=== PATIENT | male | born 2000 | race Caucasian/White ===

== ENCOUNTER → 2020-08-10 | Outpatient (CLI) | payer OTHER ==
[~2020-08-10] MED LIST: 0.9 % SODIUM CHLORIDE 10 ML DISP.SYRIN. ID ONE; GADOTERATE 5 MMOL/10ML VIAL. INT ART ONE; IOHEXOL 300 MG/ML 50 ML VIAL. INT ART ONE; LIDOCAINE 1% Multi-Dose 20 ML VIAL. ID ONE; OXYC-325 PO; PROM25TA10 PO
--- NOTE | 2020-08-10 18:25 | KCIC ---
Fluoroscopically guided injection of the right shoulder to facilitate a MR arthrogram 08/10/2020 Clinical history: Right shoulder pain. Technique: After the risks and benefits of the procedure were explained to the patient, written infor med consent was obtained. The anterior skin surface of the right shoulder was prepped and draped in s terile fashion. 1% lidocaine was used as local anesthetic. Under fluoroscopic guidance, a 22-gauge sp inal needle was advanced into the anterior aspect of the right glenohumeral joint. 18 cc of a solutio n containing 5 cc of Omnipaque 300, 5 cc of lidocaine, 10 cc of normal saline and 0.1 cc of Clariscan was injected into the right glenohumeral joint under fluoroscopic guidance. Following this the needl e was removed and hemostasis achieved at the puncture site. A sterile bandage was placed on the skin puncture site. The patient tolerated the procedure well and there were no immediate complications. Th e patient was taken to MRI for further imaging. The total fluoroscopic time for this study was 13 sec onds. 1 digital fluoroscopic captured radiograph of the right shoulder was obtained. Impression: Technically successful injection of the right shoulder joint under fluoroscopy as outline d above. Electronically signed by: Diego Stanford MD (08/10/2020 6:22 PM) [id number]
--- NOTE | 2020-08-11 13:14 | KCIC ---
EXAM: MRI RIGHT SHOULDER WITH CONTRAST INDICATION: Right shoulder pain COMPARISON: None TECHNIQUE: Multiplanar, multisequence imaging of the right shoulder after intra-articular injection o f contrast, performed separately. FINDINGS: ROTATOR CUFF: There is partial-thickness articular sided tear of the infraspinatus tendon at the foot print measuring approximately 0.9 x 1.2 cm, less than 50 percent of the tendon thickness. There are c ystic changes and osseous irregularity at the infraspinatus and posterior supraspinatus footprint. Th ere is contrast within a small cyst at the posterior supraspinatus footprint but no definite supraspi natus tendon tear. Mild supraspinatus and infraspinatus tendinopathy. Teres minor and subscapularis t endons are intact. LABRUM: There is a posterior superior labral tear. BICEPS TENDON: The biceps tendon is intact and located. ACROMIOCLAVICULAR JOINT: Within normal limits. Type I acromion without significant downsloping. GLENOHUMERAL JOINT: Articular cartilage is intact. There is osseous irregularity with cystic changes and marrow edema in the greater tuberosity, greatest at the posterior supraspinatus and infraspinatus footprint. No definite fracture. OTHER: Contrast distends the joint. No fluid or contrast in the subacromial-subdeltoid bursa. No intr a-articular body. IMPRESSION: 1. Partial-thickness articular sided tear of the infraspinatus tendon. Mild supraspinatus and infrasp inatus tendinopathy. 2. Posterior superior labral tear. 3. Marrow edema with osseous irregularity and cystic changes in the greater tuberosity, greatest at t he posterior supraspinatus and infraspinatus footprint. Electronically signed by: Sandi Levy MD (08/11/2020 1:12 PM) [id number]
== END | disposition home or self-care (01) ==
LOC: KCIC 14:52
PROVIDERS: ATTEND Orthopaedic Surgery
DX: S43.004A Unspecified dislocation of right shoulder joint, initial encounter (principal); M25.511 Pain in right shoulder; S43.431A Superior glenoid labrum lesion of right shoulder, initial encounter; Z79.899 Other long term (current) drug therapy; Z72.89 Other problems related to lifestyle; X58.XXXA Exposure to other specified factors, initial encounter; Y93.89 Activity, other specified; Y92.89 Other specified places as the place of occurrence of the external cause; Y99.8 Other external cause status
CPT/HCPCS: 23350; 73219; 77002; A9575; J3490; Q9967; 73040

== ENCOUNTER → 2020-08-19 | Outpatient (CLI) | payer OTHER ==
[~2020-08-19] MED LIST changes: -0.9 % SODIUM CHLORIDE 10 ML DISP.SYRIN. ID ONE; -GADOTERATE 5 MMOL/10ML VIAL. INT ART ONE; -IOHEXOL 300 MG/ML 50 ML VIAL. INT ART ONE; -LIDOCAINE 1% Multi-Dose 20 ML VIAL. ID ONE
== END ==
LOC: LAB 10:14
PROVIDERS: ATTEND Orthopaedic Surgery
DX: Z01.812 Encounter for preprocedural laboratory examination (principal); Z20.822 Contact with and (suspected) exposure to COVID-19; S43.431A Superior glenoid labrum lesion of right shoulder, initial encounter; M75.111 Incomplete rotator cuff tear or rupture of right shoulder, not specified as traumatic; X58.XXXA Exposure to other specified factors, initial encounter; Y93.89 Activity, other specified; Y92.89 Other specified places as the place of occurrence of the external cause; Y99.8 Other external cause status
CPT/HCPCS: U0003

== ENCOUNTER 2020-08-23 10:11 | Day surgery (SDC) | payer OTHER ==
[~2020-08-23] VITALS: Ht 172.7 cm; Wt 63.0 kg
[~2020-08-23 10:11] MED LIST changes: +BUPIVACAINE-EPI 0.25% 30 ML VIAL KIT. ONE; +EPINEPHrine VIAL 30 MG/30 ML VIAL ONE; +IV RINGERS,LACTATED 1000ML 1,000 ML IV SCH; -OXYC-325 PO; +PROCHLORPERAZINE 10 MG/2 ML VIAL. IVP PRN; -PROM25TA10 PO; +fentaNYL PF VIAL 100 MCG/2 ML VIAL IVP PRN
[2020-08-23] MEDS ORDERED: ONDANSETRON PF 4 MG/2 ML VIAL. ONE (11:36)
[2020-08-23] MEDS ORDERED: DEXAMETHASONE SOD PHOS 4 MG/ML VIAL ONE (11:36)
[2020-08-23] MEDS ORDERED: LIDOCAINE 2% PF 5 ML VIAL. ONE (11:36)
[2020-08-23] MEDS ORDERED: PROPOFOL 10 MG/ML (20ML) VIAL. IV ONE (11:36)
[2020-08-23] MEDS ORDERED: fentaNYL PF VIAL 250 MCG/5 ML VIAL ONE (11:37)
[2020-08-23] MEDS ORDERED: MIDAZOLAM HCL/PF 2 MG/2 ML VIAL. ONE (11:37)
[2020-08-23] MEDS ORDERED: ROCURONIUM 50 MG/5 ML VIAL. ONE (11:37)
[2020-08-23] MEDS ORDERED: GLYCOPYRROLATE 1 MG/5 ML VIAL. ONE (14:05)
[2020-08-23] MEDS ORDERED: NEOSTIGMINE METHYLSULFATE 5 MG/5 ML SYRINGE. ONE (14:05)
[2020-08-23] MEDS ORDERED: SEVOFLURANE > 120 MINUTES. IH ONE (14:13)
[2020-08-23] MEDS ORDERED: MORPHINE SULFATE 2 MG/ML VIAL. ONE (14:44)
[2020-08-23] MEDS: MORPHINE SULFATE 2 MG/ML VIAL. IVP PRN ×2 (14:45→14:57)
[2020-08-23] MEDS ORDERED: HYDROmorphone 2 MG/ML VIAL ONE (15:00)
--- NOTE | 2020-08-23 15:01 | PDOC4 ---
Operative Note Operative Note Date of Procedure: August 23, 2020 Pre-Op Diagnosis: Incomplete rotator cuff tear or rupture of right shoulder, not specified as traumatic M75.111 Tear of right glenoid labrum, initial encounter S43.431A Dislocation of right shoulder joint, initial encounter S43.004A Post-Op Diagnosis: Incomplete rotator cuff tear or rupture of right shoulder, not specified as traumatic M75.111 Tear of right glenoid labrum, initial encounter S43.431A Dislocation of right shoulder joint, initial encounter S43.004A Procedure: Right shoulder arthroscopic limited debridement of partial-thickness rotator cuff tear articular side of the infraspinatus, minimal tendon thickness involvement, much less than 50%. Arthroscopy, right shoulder, surgical; capsulorrhaphy with posterior labral suture anchor repair and anterior capsulorrhaphy with suture anchors CPT 66047 Surgeon: Chrissy Miller MD Instructor Warper: ALLA Lloyd Anesthesia: General EBL: 50 mL Specimens Obtained: none Complications: none Drains: none Findings: The glenohumeral joint showed anterior inferior instability, which is the predisposing factor for the posterior labral tear and undersurface infraspinatus partial-thickness rotator cuff tear, caused by internal impingement. The infraspinatus tear was amenable to debridement only. The posterior l labral tear was repaired with suture anchors. The anterior instability was repaired with labral repair and capsular plication. Indications for Procedure: This patient is a 20 -year-old with shoulder pain and sensation of instability. He tried some nonoperative treatment without success including posterior capsule stretching program. 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 Due to the anterior instability, the internal impingement has caused tears of the posterior labrum and the undersurface of the infraspinatus. We discussed options for treatment. He got minimal relief with nonoperative treatment. We discussed the option of surgery including likely anterior capsulorrhaphy and tightening which is to help prevent further internal impingement, as well as the posterior labral repair and possible rotator cuff repair. We discussed the potential risks of stiffness, infection, neurovascular injury, persistent loss of motion or pain, and the chance that he would not be able to return to competitive baseball. We discussed risks benefits and alternatives in detail and he desires to proceed. Written consent was obtained. Procedure in Detail: The patient was identified in the preoperative holding area. The correct right shoulder was marked by me. He was taken to the operating room where a general anesthetic was used. Preoperative antibiotics were given intravenously. A timeout procedure was performed. The patient was positioned laterally on a beanbag with the bony prominences well-padded. The arm suspended on an overhead traction tower with 15 pounds of traction weight. After prep of the shoulder with ChloraPrep, 20 mL of 0.25% bupivacaine with epinephrine was injected into the glenohumeral joint. The limb was then prepared circumferentially with ChloraPrep solution and sterile waterpr arcelia arthroscopy drapes were applied. Posterior, posterolateral, lateral, and anterior arthroscopy portals were used. The glenohumeral joint shows minor degenerative changes of the glenoid cartilage and limited debridement was performed. There is anterior inferior instability of the humeral head, and with traction weight, the shoulder is nearly dislocated anteriorly. There is no high-grade labral tear but there is some partial- thickness anterior labral tearing. There is a more distinct posterior labral tear which appears somewhat degenerative in nature and appears more chronic. The undersurface of the supraspinatus is normal. The undersurface of the infraspinatus had some minor partial-thickness tearing and limited debridement was performed with a shaver. Ultimately a marker suture was placed for further examination of this later in the case. I treated the anterior inferior instability first. I used the tissue liberator to free up the anterior labrum from the 3:00 to 5:00 positions. The motorized bur was used to decorticate the anterior glenoid bone for a bleeding bony tissue bed for eventual repair and capsulorrhaphy. I used Arthrex FiberTak suture anchors. 2 anterior anchors were placed, at approximately the 3:00 and 5:00 positions. The Arthrex cannula was used, and the state pilot drill hole was made with a dedicated drill bit. The first anchor was deployed at the 5 o'clock position, and then the Spectrum soft tissue repair set was used to shuttle a #0 PDS suture. The Spectrum hook was used to grasp the anterior band of the inferior glenohumeral ligament inferior to the placement of the anchor, drawing that capsular tissue up towards the anchor, and then taking a second bite with the hook, of the labrum itself at the location of the anchor. This helped to plicate the capsule and tighten the anterior instability. Once the PDS suture was deployed I used a dilator knot technique to shuttle one tail of the anchor suture under the labrum, through the capsular bite, and back out the anterior working cannula. My assistant to the president Ricardo then held the shoulder reduced while I tied the knots. I used a double sliding knot followed by reversed half hitches with reversed posts, tying all of the knots under direct arthroscopic vision for excellent knot security. The suture tails were trimmed, and a probe was used to confirm the stability of the repair of the first anchor. The first anchor part ially reduced the shoulder to a more normal concentric glenohumeral articulation. The second anchor was placed at the 3 o'clock position using the same technique, and again taking 2 bites, one of the inferior capsule and the other of the labrum at the location of the anchor, for a slight inferior capsular shift and anterior capsulorrhaphy effect. My assistant to the president Ricardo held the shoulder reduced, and the knots for the second anchor were again tied under direct arthroscopic vision and trimmed. The stability of the second anchor was confirmed. The glenohumeral joint now had a concentric normal-appearing articulation. A switching stick was used, and the arthroscope was now placed in the anterior portal, and the working cannula posteriorly. The posterior labral tear was identified approximately from the 8:00 to 10:00 positions. The tissue liberator was used to make sure the labrum was freed from the bone. I used a motorized bur to decorticate the articular margin of the glenoid bone and provide a bleeding bed for [id number] healed repair. The inferior anchor was placed first. At the posterior repair only a single bite was taken with the spectrum soft tissue hook, of the labrum only, since he likely has too tight of a posterior capsule already. In this way, the labrum tear will be repaired but there should be minimal increased posterior tightness. Predrilling was performed with the cannula and drill bit, the anchor was deployed, the Spectrum hook used with the shuttle #0 PDS suture, and the dilator knot technique, and then the arthroscopic knots were tied and trimmed. The second anchor was placed at the 10 o'clock position. This repaired the labrum nicely and was stable to probing. Arthroscopic views of the glenohumeral joint now showed a concentric and well reduced joint. The marker suture was placed at the undersurface partial-thickness cuff tear of the infraspinatus. The subacromial space was entered. There was bursitis, and bursa was excised arthroscopically for visualization. The acromion was not prominent and appears normal but the coracoacromial ligament did appear prominent, and was resected with the NexPlanar thermal energy device for subacromial decompression. The marker suture was identified. The cuff including the supraspinatus and infraspinatus appears pristine from the bursal view. There is minimal impingement after the resection of the coracoacromial ligament. I do not feel that further bony decompression was warranted nor does repair seem indicated as there is no visualized tear from this view. I expect that with the adventism of the glenohumeral anatomy, a partial undersurface infraspinatus tear in a 20-year-old should heal without difficulty. Copious irrigation was used. The shoulder was drained of fluid. The portals were closed with #3-0 Prolene interrupted sutures. An additional 30 mL of 0.25% bupivacaine with epinephrine was injected into the glenohumeral joint. Sterile dressings were applied. Needle and sponge counts were correct. A [employer]Joy UltraSling was used. There were no apparent complications. CHRISSY MILLER MD Aug 23, 2020 15:01
[2020-08-23] MEDS: HYDROmorphone 2 MG/ML VIAL IVP PRN ×3 (15:06→15:31)
[2020-08-23 15:23] VITALS: BP 143/85
[2020-08-23] MEDS ORDERED: oxyCODONE/APAP 5/325 1 TAB TABLET ONE (15:45)
[2020-08-23] MEDS ORDERED: PROM25TA10 PO (15:54)
[2020-08-23] MEDS ORDERED: OXYC-325 PO (15:55)
[2020-08-23] MEDS ORDERED: oxyCODONE/APAP 5/325 1 TAB TABLET PO PRN (16:30)
== END 2020-08-23 16:16 | disposition home or self-care (01) ==
LOC: SURG 10:11
PROVIDERS: ATTEND Orthopaedic Surgery
DX: M75.111 Incomplete rotator cuff tear or rupture of right shoulder, not specified as traumatic (principal); S43.431A Superior glenoid labrum lesion of right shoulder, initial encounter; S43.004A Unspecified dislocation of right shoulder joint, initial encounter; Z79.899 Other long term (current) drug therapy; Z98.890 Other specified postprocedural states; Z72.89 Other problems related to lifestyle; X58.XXXA Exposure to other specified factors, initial encounter; Y93.89 Activity, other specified; Y92.89 Other specified places as the place of occurrence of the external cause; Y99.8 Other external cause status
CPT/HCPCS: 29806; A4565; A4930; C1713; J0171; J0690; J1100; J1170; J2250; J2270; J2405; J2704; J2710; J3010; J3490; A4223; A4452